=== PATIENT | female | born 1930 | race Caucasian/White ===

== ENCOUNTER 2019-07-06 17:28 | Inpatient (IN) | payer MEDICARE, OTHER ==
[~2019-07-06] VITALS: Ht 167.6 cm; Wt 76.0 kg
[~2019-07-06 17:28] MED LIST: BACTRIM 400 MG-1 TAB PO; CIPROFLOXACIN500 MG PO; GLUCOPHAGE1000 MG PO; KEFLEX500 MG PO; LOPRESSOR50 MG PO; MOTRIN800 MG PO; NEXIUM40 MG PO; PAXIL30 MG PO; PYRIDIUM200 MG PO; ROBITUSSIN AC 10 MG/ PO; ZESTRIL10 MG PO; ZITHROMAX Z PA250 MG PO; ZOCOR40 MG PO
[2019-07-06 17:36] VITALS: BP 206/82
[2019-07-06 18:23] VITALS: BP 175/82
[2019-07-06 18:32] LABS: BASO % 0.3 % (0.0-1.0); EOS # 0.2 10*3/uL (0.0-0.4); EOS % 3.6 % (1.0-4.0); HEMOGLOBIN 9.2 g/dl (12.0-16.0); LYMPH # 1.1 10*3/uL (1.3-4.4); LYMPH % 18.1 % (27.0-41.0); MEAN CELL VOLUME 87.7 fl (81.0-99.0); MEAN CORPUSCULAR HGB 26.9 pg (27.0-31.0); MEAN CORPUSCULAR HGB CONC 30.7 g/dl (33.0-37.0); MEAN PLATELET VOLUME 10.3 fl (9.6-12.3); MONO # 0.5 10*3/uL (0.1-1.0); MONO % 7.9 % (3.0-9.0); NEUT # 4.3 10*3/uL (2.3-7.9); NEUT % 69.8 % (47.0-73.0); PLATELET COUNT AUTOMATED 232 10*3/uL (130-400); RED BLOOD COUNT 3.42 10*6/uL (4.10-5.10); RED CELL DISTRI WIDTH 16.1 % (0-14.5); WHITE BLOOD COUNT 6.1 10*3/uL (4.8-10.8)
[2019-07-06 18:46] LABS: ALBUMIN 3.6 gm/dl (3.1-4.5); CREATININE 2.31 mg/dL (0.55-1.02); POTASSIUM 4.3 mmol/L (3.5-5.1); TOTAL PROTEIN 7.4 gm/dL (6.4-8.2)
--- NOTE | 2019-07-06 18:51 | NUR ---
PT UNABLE TO VOID @ THIS TIME,"SORRY I COULDN'T HOLD IT AN WENT IN MY BRIEF", PT POSITIONED FOR COMFORT AFTER CLEANSED AN ADDITIONAL BRIEF PROVIDED,NO COMPLAINTS VOICED,SAFETY PRECAUTIONS INTACT AND CALL LIGHT WITHIN REACH.
[2019-07-06 19:25] VITALS: BP 199/81
[2019-07-06] MEDS ORDERED: DETROL LA4 MG PO (19:47)
[2019-07-06] MEDS ORDERED: CHOLESTYRAMINE P4 GM PO (19:47)
[2019-07-06] MEDS ORDERED: SERTRALINE HYDR50 MG PO (19:48)
[2019-07-06] MEDS ORDERED: PRAVASTATIN SOD40 MG PO (19:49)
[2019-07-06] MEDS ORDERED: LISINOPRIL40 MG PO (19:50)
[2019-07-06] MEDS ORDERED: PROPRANOLOL HCL60 MG PO (19:53)
[2019-07-06 20:00] VITALS: BP 185/68
[2019-07-06 20:27] VITALS: BP 187/76
[2019-07-06 20:45] VITALS: BP 174/73
--- NOTE | 2019-07-06 20:45 | NUR ---
A 88, admitted to , under the services of Dr. MARIXA AVILA,JW Castro with a diagnosis of HYPERTENSIVE URGENCY, DEHYDRATION. Chief complaint is ABNORMAL LABS. Patient arrived via bed from ER. Monitor applied. Initial assessment completed. Vital signs taken and recorded. DR. MARIXA AVILA,JW Castro notified of admission to the unit. Orders received. See assessment for past medical history, medications and allergies. Patient and/or family oriented to unit. [facility] visitation policy reviewed. Clothing/patient valuable form completed. DEVI CABALLERO
[2019-07-06 20:51] LABS: BILIRUBIN NEGATIVE (NEGATIVE); BLOOD 1+ (NEGATIVE); CLARITY SL CLOUDY (CLEAR); COLOR YELLOW (YELLOW); GLUCOSE NEGATIVE (NEGATIVE); KETONE NEGATIVE (NEGATIVE); LEUKO ESTERASE 1+ (NEGATIVE); NITRITE NEGATIVE (NEGATIVE); UROBILINOGEN 0.2 E.U./dl (0.2-1.0)
[2019-07-06 21:05] LABS: BACTERIA 1+
[2019-07-07] VITALS: BP 123/47
[2019-07-07 04:00] VITALS: BP 132/54
[2019-07-07 05:57] LABS: POTASSIUM 3.9 mmol/L (3.5-5.1)
--- NOTE | 2019-07-07 06:38 | NUR ---
ALLA UNDERWOOD [id number] Please refer to the physician's history and physical for past medical history, comorbid conditions, and allergies. Diagnosis: HYPERTENSIVE URGENCY DEHYDRATION Scott Score: 18,AT RISK WOUND DESCRIPTIONS: Wound Number: 1 Location of the wound: right posterior upper thigh Type of wound: stage 2 Thickness: Partial Size: 1.5cm x 1.5cm x 0.1cm Tunneling: none Undermining: none Sinus Tract: none Presence of Exudate: none Amount: None Color: Red Odor: None Periwound Skin Appearance: Normal Wound edges: approximated Pain (associated with wound): none at time of assessment How does patient state this happened? pt stated that this is been ongoing and the discomfort comes and goes but never had any type of bleeding previously. Wound Number: 2 Location of the wound: left lower extremity Thickness: Partial Size: 0.6cm x 0.6cm x 0.1cm Tunneling: none Undermining: none Sinus Tract: none Presence of Exudate: none Amount: None Color: Red Odor: None Periwound Skin Appearance: erythema, dry and flaky Wound edges: approximated Pain (associated with wound): none at time of assessment How does patient state this happened? pt stated that her legs are always like this and she follows with Dr. Cross outside of here. Surface the patient is resting on: Position Pro SKIN PREVENTION RECOMMENDATION: 1. Pressure redistribution support surface as appropriate 2. Elevate heels 3. Remove boots/TEDS every shift and reapply 4. Head of bed 30 degrees as tolerated 5. Assess nutrition and hydration 6. Manage moisture 7. Avoid the use of containment devices while in bed 8. Use absorptive products on surfaces limit layers of linens on bed 9. Turn and reposition every 1-2 hours in bed and every 1 hour in chair as tolerated 10. Weight shifts every 15 minutes while up in chair 11. Offloading with pillows or device to keep heels elevated off bed 12. Monitor skin at least every shift 13. Inspect under medical devices twice a day WOUND TREATMENT RECOMMENDATIONS: Venous and arterial studies to BLE's. Consult podiatry for BLEs since patient follow with Dr. Cross outside of here. Cleanse BLE's with soap and water and apply lac hydrin lotion bid. Partial thickness guidelines: Cleanse right posterior upper thigh with nss and apply sureprep around the wound therahoney to wound bed and cover with optifoam gentle daily and prn for soiling. Cleanse entire buttocks with soap and water and apply hydraguard every shift and prn for soiling. Wheelchair when oob. Heel raiser pro boots to BLEs while in bed.
[2019-07-07 08:00] VITALS: BP 140/60
[2019-07-07 08:25] LABS: CREATININE 2.36 mg/dL (0.55-1.02); POTASSIUM 3.9 mmol/L (3.5-5.1)
[2019-07-07 08:26] LABS: PHOSPHOROUS 3.1 mg/dL (2.5-4.9)
--- NOTE | 2019-07-07 08:40 | NUR ---
DR. PARRISH'S RESIDENT NOTIFIED OF CONSULT.
--- NOTE | 2019-07-07 11:00 | NUR ---
Office Administration Instructor in to talk to patient. Patient states lives at home with her . There are 15 steps in the home. Physician: Dr. Rodrigue Cano Pharmacy: [facility]: she would like to speak to her first Patient's level of ADLs: MINIMAL ASSIST Patient has working utilities: yes DME: walker when outside of home Follow-up physician's appointment after d/c: she prefers to make her own follow up appt after discharge Does patient want to access PORTAL?: no Discharge plan discussed with patient. She lives at home with her . She needs minimal assistance with her ADLs and ambulates with a walker when outside of the home. Discussed short term SNF and home health care services and she would like to speak to her before deciding. Discharge plan undecided at this time. Will speak to when he arrives. DIRK ARREOLA
--- NOTE | 2019-07-07 11:11 | NUR ---
PHYSICAL THERAPY Physical therapy evaluation complete, 4E. Moderate complexity PT evaluation (72284) per chart review and evaluation. PT to progress bed mobility, transfers, gait, and balance per POC. Recommend SNF at discharge. Thank you. Charu Boone,PT,DPT
--- NOTE | 2019-07-07 11:42 | NUR ---
Received snf order, notified tato in [facility] of possible referral for open female bed. Waiting on [facility] to make referral
[2019-07-07 12:00] VITALS: BP 142/58
--- NOTE | 2019-07-07 12:15 | NUR ---
Discussed with and patient discharge planning. They are agreeable to SNF. When provided with a list of facilities they chose [facility]. states their daughter is a retired RN and suggested to them she needs to have a short term stay in a facility. financial planner notified.
--- NOTE | 2019-07-07 13:40 | NUR ---
Contacted [facility] and faxed referral, waiting on review/acceptance.
[2019-07-07 16:00] VITALS: BP 124/61
[2019-07-07 20:00] VITALS: BP 138/54; BP 138/57
[2019-07-08] VITALS: BP 141/63
--- NOTE | 2019-07-08 01:53 | NUR ---
24 HR chart check completed.
[2019-07-08 08:00] VITALS: BP 154/74
[2019-07-08 12:00] VITALS: BP 153/64
[2019-07-08 16:00] VITALS: BP 130/52
[2019-07-08 16:36] VITALS: BP 104/79
[2019-07-08 20:00] VITALS: BP 135/78
[2019-07-09] VITALS (7 sets, daily range): BP systolic 135–171; BP diastolic 48–65
--- NOTE | 2019-07-09 00:39 | NUR ---
24 HR chart check completed.
--- NOTE | 2019-07-09 08:00 | NUR ---
PT SITTING UP IN BED. NO DISTRESS NOTED. RESPIRATIONS EASY, REGULAR ON RA. IVF MAINTAINED. BILATERAL TUBI-REFRIGERATION SPECIALIST WITH HEEL PROTECTORS INTACT. WILL CONTINUE TO MONITOR. VSS. CALL LIGHT WITHIN REACH.
--- NOTE | 2019-07-09 17:00 | NUR ---
IN TO SEE PATIENT. IVF TO BE DECREASED TO 60CC/HR. WILL MONITOR.
--- NOTE | 2019-07-09 20:37 | NUR ---
PATIENT'S BP 160/62 MANUALLY. PO APRESOLINE GIVEN PER ORDER. WILL MONITOR EFFECTIVENESS. PT DENIES ANY NEW/WORSENING SYMPTOMS. BRIEF CHANGED & PT REPOSITIONED IN BED FOR COMFORT. BED LEFT LOCKED IN LOW POSITION, BED ALARM INTACT, CALL LIGHT IN REACH. WILL MONITOR.
[2019-07-10] VITALS: BP 158/54
[2019-07-10 05:00] VITALS: BP 166/55
--- NOTE | 2019-07-10 05:05 | NUR ---
PT'S BP ELEVATED AGAIN AT 166/65. PO APRESOLINE ADMINISTERED EARLY. WILL MONITOR. CALL LIGHT IN REACH.
[2019-07-10 06:03] LABS: CREATININE 2.29 mg/dL (0.55-1.02); POTASSIUM 3.9 mmol/L (3.5-5.1)
--- NOTE | 2019-07-10 06:34 | NUR ---
Upon discharge recommend patient to follow up for wound care in outpatient setting continue current wound care orders at discharging facility.
--- NOTE | 2019-07-10 07:10 | NUR ---
Updated clinicals and therapy faxed to [facility] for review, waiting on [place] passrr clearance.
[2019-07-10 08:00] VITALS: BP 152/74
--- NOTE | 2019-07-10 10:49 | NUR ---
OT NOTE Pt was seen this A.M. 1:1 for 23 minute OT session. Upon arrival pt was supine in bed with at bedside. Pt identified by name and and had no complaints at this time other than "my R ear is plugged so I can't hear well out of it." Pt transferred supine to sit EOB with Da for assist with UB. While sitting EOB requested for pt to jovi B socks and pt required maxA due to F- sitting balance requiring Da or UE support. Pt had multiple episodes of retrograde posture which she was unable to self recognize requiring tactile prompts to correct. Challenged pt's dynamic sitting balance needed for increased I and enhanced safety in ADL/IADL tasks. While weight shifting, crossing midline, and reaching over all planes pt was able to maintain F- sitting balance. Pt then completed multiple sit to stand transfers from bed level with modA CURRICULUM ASSISTANT PRINCIPAL. Upon inital rise pt had multiple LOB forward and to bilateral sides that required modA to correct. Challenged pt's static standing tolerance needed for increased I in self care tasks and functional transfers, pt was able to tolerate aprox 60 seconds at a time before sitting due to fatigue and reports of "BLE weakness." Pt reported that "I am unable to feel anything, well a little in either of my feet." Educated pt on next sit to stands on compensatory techniques for correcting LOB due to being unable to feel B feet. Pt had poor carry over still resulting in modA to correct LOB. Pt then transferred back into bed sit to supine with Da and was repositioned in bed with modA X 2. There she was left with call light in hand, still at bedside, and bed alarm activated for safety. Continue with rec D/C plan to SNF. VANESSA Patterson/Yohannes
--- NOTE | 2019-07-10 11:00 | NUR ---
Data Processor in to see patient. She is currently working with PT. at bedside. Discussed [facility] vs home with home health care services She states she is going home. After much discussion with her, PT, her , and CM patient is agreeable to [facility]. She is apprehensive to go as she thinks she is going for retirement and not just short term. Explained to her it is just for rehab to get her back to the point she was prior to coming into the hospital. She remains agreeable. operations planner notified. Patient and were curious to whether she could have a private room and at this time there are no private rooms available. Patient and notified.
--- NOTE | 2019-07-10 11:10 | NUR ---
PHYSICAL THERAPY Patient seen this am 1:1 for therapy visit and was supine in bed upon therapist arrival. Patient identified by name / and was very MENT[place]A this session with her present for entire treatment. Patient transfers supine to sit EOB with MIN A and sit to stand Min A x 1. Patient ambulates PROFESSOR OF LAW/Min around bed, 15'x 1, demonstrating very slow, cautious gait pattern. Patient returned to bedside chair and after a brief seated rest break performed seated B LE therex, all planes, x 15 reps each to increase LE strength. Patient remained in bedside chair with call light, tray table and body alarm as student nurse arrived. Will continue per POC as tolerated, total treatment time 17 minutes. Duane Barber, SUBASSEMBLER
--- NOTE | 2019-07-10 11:15 | NUR ---
Remains up in chair. Smiling, pleasant, in good spirits. here visiting. Sheila LUJAN
[2019-07-10 12:00] VITALS: BP 144/76
--- NOTE | 2019-07-10 13:50 | NUR ---
OT NOTE Pt was seen this P.M. 1:1 for second OT session consisting of 20 minutes. Upon arrival pt was sitting upright in the recliner. Pt identified by name and and had no complaints at this time. Pt completed multiple sit to stand transfers from chair level with modA and use of w/w for UE support. Challenged pt's static standing tolerance needed for increased I in self care tasks and functional transfers, pt was able to tolerate aprox 2 minutes at a time before sitting due to fatigue. Pt then completed functional mobility to the bedside commode with CGA and use of w/w with verbal prompts for slowing down due to being impulsive. Pt transferred on/off bedside commode with Da. Clothing management completed with maxA due to having LOB when standing without UE support and toilet hygiene completed with SBA while seated. Functional mobility then completed back to the recliner where she was left with body alarm on for safety, call light in hand, and tray table in place. Continue with rec D/C plan to SNF. VANESSA Patterson/Yohannes
--- NOTE | 2019-07-10 15:11 | NUR ---
SAM received call from Patients daughter Helen Renee. She her father told her the patient would be returning home upon discharge. TERRA COTTA SETTER explained the plan is for the patient to go to [facility]. The daughter stated she and her sister live 3 to 4 hours away and her parents are by themselves. She stated "my mother has not bathed in years." "She refuses to get out of her chair." "She is incontinent and refuses to use depends." "They refuse all services who attempt to come into their home." The daughter states it would be best for the patient to go to [facility] vs home. TERRA COTTA SETTER will confirm with the patient that [facility] is still the plan of discharge. (Helen -[phone]) -SAM Mauricio
--- NOTE | 2019-07-10 15:40 | NUR ---
Youth Advocate and social service agency director spoke to in the hallway who states patient is agreeable to a SNF when staff is in the room but as soon as everyone leaves she states she is not going to [facility] and is going home. Offered home health care services and he is agreeable. They have had [facility] and wishes to have them again. would like to have a hospital bed. Dr. Cano notified.
[2019-07-10 15:58] VITALS: BP 121/87
--- NOTE | 2019-07-10 16:04 | NUR ---
Message left at ext [phone] Boucher regarding consult for comptetency evaluation.
--- NOTE | 2019-07-10 19:52 | NUR ---
PATIENT C/O RIGHT EAR BEING "CLOGGED" WITH WAX. STATES IT IS HARD TO HEAR AND HER EARS HAVE BEEN DRAINING PRIOR TO BEING CLOGGED. NOTIFIED. NEW ORDER RECEIVED FOR [facility].
[2019-07-10 20:00] VITALS: BP 145/52
[2019-07-11] VITALS: BP 133/67
--- NOTE | 2019-07-11 01:15 | NUR ---
PT ASLEEP IN BED. RESPIRATIONS EASY. NO S/S OF DISTRESS NOTED. WILL MONITOR. CALL LIGHT LEFT IN REACH.
[2019-07-11 05:15] VITALS: BP 146/56
--- NOTE | 2019-07-11 05:35 | NUR ---
DRESSING CHANGED TO R POSTERIOR THIGH (BELOW BUTTOCKS) PER ORDER. PT TOLERATED WELL. WILL MONITOR. CALL LIGHT LEFT IN REACH. BED LEFT LOCKED IN LOW POSITION. BED ALARM INTACT.
--- NOTE | 2019-07-11 07:46 | NUR ---
Patients [facility] has cleared for short term rehab. Patient has met the 3 night stay requirement. If patient chooses to go to [facility], patient can go when medically stable for discharge.
[2019-07-11 07:59] LABS: CREATININE 2.42 mg/dL (0.55-1.02); POTASSIUM 3.8 mmol/L (3.5-5.1)
[2019-07-11 08:00] VITALS: BP 120/50
--- NOTE | 2019-07-11 08:30 | NUR ---
PHYSICAL THERAPY PT SUPINE IN BED UPON ARRIVAL WITH BED ALARM ON. PT IDENTIFIED BY NAME AND . PT AGREED TO ALL PT TREATMENT THIS VISIT. PT HAD NO REPORT OF PAIN THIS VISIT. PT PERFORMED BED MOBILITYING SUPINE TO SIT EOB WITH CGA. PT PERFORMED STS FROM EOB TO FWW WITH Kathryn X1 WITH VC'S FOR SAFETY AND TECHNIQUE. PT GAIT TRAINED 20FT X2 WITH FWW AND Kathryn X1 WITH VC'S FOR POSTURE AND SAFTEY WITH WALKER. PT C/O HAVING SLIGHT LIGHT HEADED AT LAST 5FT OF GAIT. PT PERFORMED STS TO RECLINER WITH VC'S FOR SAFETY PT PLOPPED IN TO RECLINER AND WAS NOT SAFE. PT SITTING IN RECLINER WITH BODY ALARM ON AND CALL LIGHT IN HAND WITH PRESENT AT END OF SESSION. PT SEEN 1:1 FOR 18MINS ROGERIO FLORES PTA
--- NOTE | 2019-07-11 09:00 | NUR ---
Strapper in to see patient. at the bedside. No new needs or request at this time. Discussed [facility] and the patient and both states the patient is going home. Discussed home health care services and they remain agreeable to [facility]. Discussed hospital bed as she will not be able to get up to the bedroom that is on the second floor. Dr. Cano notified. When medically stable she will be discharged to home with [facility].
--- NOTE | 2019-07-11 09:04 | NUR ---
OT NOTE Pt was seen this A.M. 1:1 for 24 minute OT session. Upon arrival pt was supine in bed. Pt identified by name and and had no complaints at this time. Pt transferred supine to sit EOB with CGA and use of bed rail for UE support. While sitting EOB pt donned B socks with SBA. Sit to stand completed from bed level with Da and use of w/w for UE support. Functional mobility then completed into the bathroom with Da and use of w/w. Throughout pt required constant verbal prompts for safe walker distance, correcting her posture, and holding her head up. Pt had poor carry over throughout. Pt transferred on/off standard commode with Da and use of grab bar for UE support. Clothing management completed with maxA due to pt having LOB forwards when standing without UE support. Toilet hygiene completed with SBA while seated. Pt then stood sink side while washing her hands with CGA for safety. Pt had reports of "slight dizziness" educated pt on visual fixation. Functional mobility then completed back to the recliner where she was left sitting upright with call light in hand, tray table in place, and body alarm on for safety. Continue with rec D/C plan to SNF. VANESSA Patterson/Yohannes
[2019-07-11] MEDS ORDERED: AMMONIUM LACTA227 GM T (10:44)
[2019-07-11] MEDS ORDERED: SODIUM BICARBO650 MG PO (10:44)
[2019-07-11] MEDS ORDERED: TRAD5TAB1 PO (10:44)
--- NOTE | 2019-07-11 10:48 | NUR ---
Faxed home health order to [facility]
--- NOTE | 2019-07-11 12:10 | NUR ---
Spoke to Alison at [facility], they have accepted patient.
--- NOTE | 2019-07-11 14:00 | NUR ---
Discharge instructions reviewed with patient/family. Patient receptive and verbalizes understanding. Follow-up care arranged. Written instructions given to patient/family. Patient and spouse were educated on new prescriptions and medications that were discontinued. They were also educated on follow up visits with Dr. Cano and Dr. Boggs. Patient was wheeled from unit by staff member with all personal belongings accounted for. SONG ALEXANDER
--- NOTE | 2019-07-11 15:05 | NUR ---
Faxed hospital bed prescription and clinical to [facility]
--- NOTE | 2019-07-11 15:17 | NUR ---
Spoke to Viv at [facility]. Hospital bed will be delivered either tomorrow Wednesday or .
--- NOTE | 2019-07-11 17:54 | NUR ---
Mr. June called with questions regarding what medications he should give his tonight. He also questioned the "new prescription" for sodium bicarb. I contacted Dr. Boggs. Per physician she did not intend on discharging her on that medication. Labs were reviewed. Called Mr. June back with updated information.
--- NOTE | 2019-07-12 07:45 | NUR ---
OT CO-SIGN I approve of the notes written above. Thank you. María Cross, OTR/L
--- NOTE | 2019-07-12 07:51 | NUR ---
PHYSICAL THERAPY CO-SIGN I approve of the Physical Therapy notes written above. DIRK HURTADO PT,DPT
== END 2019-07-11 14:00 | disposition home health service (06) | DRG 683 ==
LOC: ED 17:28 → EDHOLD 19:10 → 4E 19:10
PROVIDERS: Emergency Medicine; Internal Medicine Nephrology; ADMIT Internal Medicine
PROC: 0HBRXZZ Excision of Toe Nail, External Approach (ICD-10-PCS; principal; 2019-07-07)
DX: N17.9 Acute kidney failure, unspecified (principal); N39.0 Urinary tract infection, site not specified; F33.1 Major depressive disorder, recurrent, moderate; N18.4 Chronic kidney disease, stage 4 (severe); I16.0 Hypertensive urgency; E86.0 Dehydration; F41.1 Generalized anxiety disorder; K52.9 Noninfective gastroenteritis and colitis, unspecified; I12.9 Hypertensive chronic kidney disease with stage 1 through stage 4 chronic kidney disease, or unspecified chronic kidney disease; K21.9 Gastro-esophageal reflux disease without esophagitis; B96.1 Klebsiella pneumoniae [K. pneumoniae] as the cause of diseases classified elsewhere; R62.7 Adult failure to thrive; E78.2 Mixed hyperlipidemia; E11.22 Type 2 diabetes mellitus with diabetic chronic kidney disease; D63.8 Anemia in other chronic diseases classified elsewhere; Z88.1 Allergy status to other antibiotic agents; Z88.2 Allergy status to sulfonamides; Z87.01 Personal history of pneumonia (recurrent); Z90.49 Acquired absence of other specified parts of digestive tract; Z83.3 Family history of diabetes mellitus; Z80.8 Family history of malignant neoplasm of other organs or systems; Z79.899 Other long term (current) drug therapy